=== PATIENT | female | born 1990 | race African-American/Black ===

== ENCOUNTER 2024-07-30 11:12 | Emergency (ER) | payer OTHER ==
[~2024-07-30] VITALS: Ht 177.8 cm; Wt 95.5 kg
[~2024-07-30 11:12] MED LIST: IBUP80TA PO; LANOOIN21 EXT; MAPA500T17 PO; PRENTAB9 PO
[2024-07-30] MEDS ORDERED: ISOVUE-370 76% 100ML VIAL As Ordered ONE (15:39)
[2024-07-30 17:34] VITALS: BP 149/87; TEMP 97.5; O2SAT 100
[2024-07-30] MEDS ORDERED: SULF1TAB23 PO (17:43)
== END 2024-07-30 18:02 | disposition home or self-care (01) ==
LOC: M ED 11:12
DX: L03.314 Cellulitis of groin (principal); F17.200 Nicotine dependence, unspecified, uncomplicated; I10 Essential (primary) hypertension; Z79.1 Long term (current) use of non-steroidal anti-inflammatories (NSAID); Z79.899 Other long term (current) drug therapy; Z79.2 Long term (current) use of antibiotics
CPT/HCPCS: 36415; 74177; 80047; 84702; 99284; Q9967